=== PATIENT | male | born 1990 | race Two or more races ===

== ENCOUNTER 2022-12-09 02:20 | Emergency (ER) | payer OTHER ==
[~2022-12-09] VITALS: Ht 162.6 cm; Wt 77.3 kg
[2022-12-09 02:53] LABS: Nucleated Red Blood Cells % 0.2 %
[2022-12-09 02:55] LABS: Basophils # (auto) 0.1 10 ^3/uL (0-0.2); Basophils % (auto) 0.9 % (0.0-2.0); Eosinophils # (auto) 0.5 10 ^3/uL (0-0.8); Eosinophils % (auto) 4.5 % (0.0-7.0); Hematocrit 44.8 % (41.0-53.0); Hemoglobin 15.5 g/dL (13.5-17.5); INR 0.98 (0.9-1.15); Lymphocytes # (auto) 3.4 10 ^3/uL (0.4-5.4); Lymphocytes % (auto) 30.7 % (10.0-50.0); Mean Corpuscular Hemoglobin 29.7 pg (28.0-32.0); Mean Corpuscular Hgb Conc. 34.5 g/dL (32.0-36.0); Mean Corpuscular Volume 86.1 fL (80.0-100.0); Monocytes # (auto) 0.6 10 ^3/uL (0-1.3); Monocytes % (auto) 5.8 % (0.0-12.0); Neutrophils # (auto) 6.4 10 ^3/uL (1.6-8.6); Neutrophils % (auto) 58.1 % (37.0-80.0); Partial Thromboplastin Time 30.2 SEC (24.5-34.5); Red Cell Distribution Width 12.7 % (11.8-14.3); White Blood Cell 11.1 10^3/uL (4.4-10.8)
[2022-12-09 03:11] LABS: Albumin 4.1 g/dL (3.4-5.0); BUN/Creatinine Ratio 14.4 (10.0-20.0); Calcium 8.8 mg/dL (8.5-10.1); Magnesium 2.2 mg/dL (1.6-2.6); Potassium 3.6 mmol/L (3.5-5.1)
[2022-12-09 03:18] LABS: Bilirubin, Total 0.3 mg/dL (0.2-1.0); Total Protein 7.5 g/dL (6.4-8.2)
[2022-12-09] MEDS ORDERED: ASPirin 325 MG TAB PO ONE (07:00)
[2022-12-09] MEDS ORDERED: IBU600T PO (07:02)
[2022-12-09 08:11] VITALS: BP 121/62
== END 2022-12-09 07:55 | disposition home or self-care (01) ==
LOC: ER 02:20
DX: R07.89 Other chest pain (principal)
CPT/HCPCS: 36415; 71045; 80053; 83735; 83880; 84484; 85025; 85379; 85610; 85730; 93005